=== PATIENT | female | born 1960 | race Two or more races ===

== ENCOUNTER 2019-08-23 07:46 | Day surgery (SDC) | payer BC ==
[2019-08-19 15:52] VITALS: BMI 19.5
[2019-08-23 08:45] VITALS: TEMP 98.7
[2019-08-23] MEDS ORDERED: LIDOCAINE HCL/PF 2% SDV 5ML VIAL ONE (08:58)
[2019-08-23] MEDS ORDERED: PROPOFOL 20 ML ONE ×4 (08:58)
[2019-08-23 10:12] VITALS: BP 104/61; PULSE 63
--- NOTE | 2019-08-25 14:12 | PATH ---
Surgical Pathology Report Patient Name: PEDRO SANTOS [facility]. Rec. #: [id number] /Age/Gender: 1960 (Age: 58) / F Account: [id number] Location: [facility] Taken: 08/23/2019 Received: 08/23/2019 Reported: 08/25/2019 Physicians: Estevan Uriarte M.D. Specimen(s) Received A: SECOND PORTION OF DUODENUM B: GASTRIC ANTRUM Clinical History GERD, screening Postoperative diagnosis: Gastritis, internal hemorrhoids Final Diagnosis A. SECOND PORTION OF DUODENUM, BIOPSY: DUODENAL MUCOSA WITH NO PATHOLOGIC FINDINGS. B. GASTRIC ANTRUM, BIOPSY: MILD CHRONIC GASTRITIS WITH FEATURES OF REACTIVE GASTROPATHY. IMMUNOSTAIN IS NEGATIVE FOR H. PYLORI ORGANISMS. Electronically Signed Paulina Tavarez M.D. Gross Description A. Received in formalin, labeled "biopsy second portion of duodenum" are 3 caro, irregular portions of soft tissue ranging from 0.2-0.7 cm. in greatest dimension. The specimens are submitted in toto in one cassette. B. Received in formalin, labeled "biopsy gastric antrum" are 2 caro, irregular portions of soft tissue averaging 0.3 cm. in greatest dimension. The specimens are submitted in toto in one cassette. 08/24/2019 saudi08/24/2019
== END 2019-08-23 10:30 | disposition home or self-care (01) ==
LOC: FASU-ENDO 07:46
PROVIDERS: ATTEND Internal Medicine Gastroenterology
PROC: 0DB98ZX Excision of Duodenum, Via Natural or Artificial Opening Endoscopic, Diagnostic (ICD-10-PCS; 2019-08-23)
PROC: 0DB68ZX Excision of Stomach, Via Natural or Artificial Opening Endoscopic, Diagnostic (ICD-10-PCS; 2019-08-23)
PROC: 0DJD8ZZ Inspection of Lower Intestinal Tract, Via Natural or Artificial Opening Endoscopic (ICD-10-PCS; principal; 2019-08-23 09:15)
DX: Z12.11 Encounter for screening for malignant neoplasm of colon (principal); K64.8 Other hemorrhoids; K29.50 Unspecified chronic gastritis without bleeding; K31.9 Disease of stomach and duodenum, unspecified; R12 Heartburn
CPT/HCPCS: 88305-TC; 88342-TC